=== PATIENT | female | born 1935 | race Hispanic/Latino ===

== ENCOUNTER 2016-12-02 17:38 | Observation (INO) | payer MEDICARE, BC ==
[2016-12-02 17:47] VITALS: BMI 26.9
--- NOTE | 2016-12-02 18:19 | ED PDOC ---
Arrival/HPI - General Chief Complaint: Palpitations Time Seen by Provider: 12/02/16 17:57 Historian: Patient - History of Present Illness Narrative History of Present Illness (Text): 12/02/16 18:16 81 year old female presents to the emergency department with intermittent epigastric pain radiating to the retrosternal area, sent by PMD Dr. Jenkins for concerns of unstable angina. Denies shortness of breath or dyspnea on exertion. Denies chest pain. Past Medical History - Provider Review Nursing Documentation Reviewed: Yes - Infectious Disease Hx of Infectious Diseases: None - Tetanus Immunization Tetanus Immunization: Unknown - Hematological/Oncological Hx Cancer: Yes (lymphoma) - Psychiatric Hx Depression: No Hx Emotional Abuse: No Hx Physical Abuse: No Hx Substance Use: No - Surgical History Other/Comment: Uterine Surgery - Anesthesia Hx Anesthesia: Yes - Suicidal Assessment Feels Threatened In Home Enviroment: No Family/Social History - Physician Review Nursing Documentation Reviewed: Yes Family/Social History: Unknown Family HX Smoking Status: Unknown If Ever Smoked Hx Alcohol Use: No Hx Substance Use: No Allergies/Home Meds Allergies/Adverse Reactions: Allergies No Known Allergies Allergy (Verified 12/02/16 17:46) Home Medications: Home Meds Medication Instructions Recorded Confirmed No Known Home Med 12/02/16 12/02/16 Review of Systems - Physician Review All systems were reviewed & negative as marked: Yes Physical Exam - Physical Exam Narrative Physical Exam (Text): - Review of Systems Constitutional: Normal. absent: Fatigue, Weight Change, Fevers Eyes: Normal ENT: Normal Respiratory: Normal absent: SOB, [place], Cough, Sputum Cardiovascular: Retrosternal pain absent: Palpitations, Syncope Gastrointestinal: Epigastric pain absent: Diarrhea, Nausea, Vomiting Genitourinary: Normal. absent: Dysuria, Frequency, Hematuria Musculoskeletal: Normal. absent: Arthralgias, Back Pain, Neck Pain Skin: Normal Neurological: Normal absent: Focal Weakness Endocrine: Normal Hemo/Lymphatic: Normal Psychiatric: Normal - Physical exam Patient appears age appropriate, speaking full sentences without difficulty - Systems Exam Head: Present: Atraumatic, Normocephalic Pupils: Present: PERRL Extraocular Muscles: Present: EOMI Conjunctiva: Present: Normal Mouth: Present: Moist Mucous Membranes Neck: Present: Normal Range of Motion. No: MIDLINE TENDERNESS, Paraspinal Tenderness Respiratory/Chest: Present: Clear to Auscultation, Good Air Exchange. No: Respiratory Distress, Accessory Muscle Use, Tachypneic Cardiovascular: Present: Regular Rate and Rhythm, Normal S1, S2, Peripheral Pulses Present. No: Murmurs Abdomen: Present: Normal Bowel Sounds, No: Tenderness, Peritoneal Signs, Rebound, Guarding, Distention Back: Present: Normal Inspection. No: Midline Tenderness, Paraspinal Tenderness Upper Extremity: Present: Normal Inspection. No: Cyanosis, Edema Lower Extremity: Present: Normal Inspection. No: Edema Neurological: Present: GCS=15, Speech Normal, cranial nerves II through XII fully intact with no cerebellar abnormality, neuro-sensory fully intact. No focal neurological deficits. Skin: Present: Warm, Dry, Normal Color. No: Rashes Lymphatic: Present: OX3, NI, NC Psychiatric: Present: Alert, Oriented x 3, Normal Insight, Normal Concentration Vital Signs Reviewed: Yes Vital Signs Temp Pulse Resp BP Pulse Ox 12/02/16 18:30 64 20 155/76 H 98 12/02/16 17:51 97.7 F 75 20 112/55 L 98 Temperature: Afebrile Blood Pressure: Normal Pulse: Regular Respiratory Rate: Normal Appearance: Positive for: Well-Appearing, Non-Toxic Mental Status: Positive for: Alert and Oriented X 3 Medical Decision Making ED Course and Treatment: Impression: 81 year old female presents to the emergency department with intermittent epigastric pain radiating to the retrosternal area, sent by PMD Dr. Jenkins for concerns of unstable angina. On physical exam, patient has no acute findings. Plan: -- Chest X-ray -- Aspirin -- Labs -- Reassess and disposition Progress Notes: EKG shows NSR at [address]-segment elevations, normal intervals. Interpreted by me. Patient agreeable to overnight observation on telemetry for cardiac evaluation. 12/02/16 20:40 Chest xray interpreted by ED physician shows no pneumothorax, no cardiomegaly, no infiltrates dw Dr. Roberts, accepted pt to tele under her service pt in no distress, resting comfortably in bed - Lab Interpretations Lab Results: 12/02/16 18:00 12/02/16 18:45 Lab Results 12/02/16 18:45: Sodium 140, Potassium 3.7, Chloride 110 H, Carbon Dioxide 20 L, Anion Gap 14, BUN 20, Creatinine 0.7, Est GFR ( Amer) > 60, Est GFR (Non- Af Amer) > 60, Random Glucose 81, Calcium 9.1, Total Bilirubin 0.7, AST 29, ALT 24, Alkaline Phosphatase 61, Lactate Dehydrogenase 504, Total Creatine Kinase 101, Troponin I < 0.01, Total Protein 7.3, Albumin 4.1, Globulin 3.2, Albumin/ Globulin Ratio 1.3 12/02/16 18:00: PT 10.7, INR 0.99, APTT 23.3 L 12/02/16 18:00: WBC 4.8, RBC 4.21, Hgb 13.0, Hct 38.1, MCV 90.5, MCH 30.9, MCHC 34.1, RDW 14.2, Plt Count 214, MPV 10.2, Gran % 55.9, Lymph % (Auto) 31.0, [place] % (Auto) 9.4 H, Eos % (Auto) 2.9, Baso % (Auto) 0.8, Gran # 2.67, Lymph # 1.5, [place] # 0.5, Eos # 0.1, Baso # 0.04 - RAD Interpretation Radiology Orders: 12/02/16 18:12 CHEST PORTABLE [RAD] Stat - Medication Orders Current Medication Orders: Aspirin (Ecotrin) 81 mg PO DAILY CATRACHITO Nitroglycerin (Nitrostat Sl Tab) 0.4 mg SL STAT PRN PRN Reason: CHEST PAIN Last Admin: 12/02/16 20:24 Dose: 0.4 mg Discontinued Medications Aspirin (Aspirin Chewable) 324 mg PO STAT STA Stop: 12/02/16 18:13 Last Admin: 12/02/16 18:45 Dose: 324 mg - Scribe Statement The provider has reviewed the documentation as recorded by the Héctor Vicente Provider Scribe Attestation: All medical record entries made by the Héctor were at my direction and personally dictated by me. I have reviewed the chart and agree that the record accurately reflects my personal performance of the history, physical exam, medical decision making, and the department course for this patient. I have also personally directed, reviewed, and agree with the discharge instructions and disposition. Disposition/Present on Arrival - Present on Arrival Any Indicators Present on Arrival: No History of DVT/PE: No History of Uncontrolled Diabetes: No Urinary Catheter: No History of Decub. Ulcer: No History Surgical Site Infection Following: None - Disposition Have Diagnosis and Disposition been Completed?: Yes Diagnosis: Chest pain Disposition: HOSPITALIZED Disposition Time: 20:42 Patient Plan: Observation Condition: FAIR Discharge Instructions (ExitCare): Chest Pain (ED) Referrals: La Nena Jenkins MD [Primary Care Provider] - Follow up with primary
[2016-12-02 18:24] LABS: ADD MANUAL DIFF? NO
[2016-12-02 18:38] LABS: BASO # 0.04 K/mm3 (0.0-2.0); BASO % 0.8 % (0.0-3.0); EOS # 0.1 (0.0-0.7); EOS % 2.9 % (1.5-5.0); GRAN # 2.67 (1.4-6.5); GRAN % 55.9 % (50.0-68.0); HEMATOCRIT 38.1 % (36.0-48.0); LYMPH # 1.5 (1.2-3.4); MEAN CELL VOLUME 90.5 fL (80.0-105.0); MEAN CORPUSCULAR HEMOGLOBIN 30.9 pg (25.0-35.0); MEAN CORPUSCULAR HGB CONC 34.1 g/dl (31.0-37.0); MEAN PLATELET VOLUME 10.2 fl (7.0-11.0); MONO # 0.5 (0.1-0.6); MONO % 9.4 % (1.0-6.0); PLATELET COUNT 214 10^3/uL (120.0-450.0); RED CELL DISTRIBUTION WIDTH 14.2 % (11.5-14.5); WHITE BLOOD COUNT 4.8 10^3/ul (4.5-11.0)
[2016-12-02 18:49] LABS: INR 0.99 (0.93-1.08); PARTIAL THROMBOPLASTIN TIME 23.3 Seconds (23.7-30.8)
[2016-12-02 18:56] LABS: ALB/GLOB RATIO 1.3 (1.1-1.8); ALKALINE PHOSPHATASE 61 U/L (38-133); ALT/SGPT 24 U/L (7-56); AST/SGOT 29 U/L (15-39); BILIRUBIN,TOTAL 0.7 mg/dL (0.2-1.3); BLOOD UREA NITROGEN 20 mg/dL (7-21); CALCIUM 9.1 mg/dL (8.4-10.5); CARBON DIOXIDE 20 mmol/L (21-33); CHLORIDE 110 mmol/L (98-107); GFR AFRICAN-AMERICAN > 60; GLUCOSE,RANDOM 81 mg/dL (70-110); POTASSIUM 3.7 mmol/L (3.6-5.0); SODIUM 140 mmol/L (132-148); TOTAL PROTEIN 7.3 g/dL (5.8-8.3)
[2016-12-02 19:08] LABS: TROPONIN I < 0.01 ng/mL
[2016-12-02] MEDS: Nitroglycerin 2% Ointment Foilpak UD TOP PRN (23:58)
[2016-12-03] MEDS: Nitroglycerin 2% Ointment Foilpak UD TOP PRN (06:08)
[2016-12-03 06:21] VITALS: O2SAT 97
[2016-12-03 09:12] LABS: CHOLESTEROL 193 mg/dL (130-200)
--- NOTE | 2016-12-03 09:17 | CON ---
DATE: 12/03/2016 INDICATIONS: Midepigastric abdominal chest discomfort and weakness. HISTORY OF PRESENT ILLNESS: This is an 81-year-old woman admitted through the Emergency Room after she complained of vague symptoms including mid epigastric and retrosternal discomfort and an "emptiness" in those areas and weakness. A week or so ago she exerted herself during gardening which included lifting flower pots while she was lying on her abdomen. She believes that she may have strained herself during this exertion. Her son applied massage to the aching muscles, but symptoms continued and she saw two physicians, The second, Dr. Saray Jenkins sent her to the Emergency Room and she was admitted. This morning she has no symptoms and feels well except that she is anxious about the diagnosis. There is no typical exertional chest pain described, shortness of breath, orthopnea, PND, syncope, presyncope, lightheadedness, dizziness, vertigo, palpitations, edema or claudication There is no fever, chills, cough, sputum production, hemoptysis, abdominal pain, nausea, vomiting, diarrhea, constipation , melena. PAST MEDICAL HISTORY: Noted for lymphoma which was apparently treated with chemotherapy successfully. She has had uterine surgery for "abnormal cells." There is no history of rheumatic fever, myocardial infarction, angina, congestive heart failure, arrhythmia, diabetes, stroke, TIA or gout. Her blood pressure has been elevated recently. MEDICATIONS: None. ALLERGIES: There are no medication allergies. SOCIAL HISTORY: She does not smoke. She does not drink. She lives at home. She is ambulatory and active. FAMILY HISTORY: Noncontributory. REVIEW OF SYSTEMS: A 10-point review of systems is otherwise unremarkable except as noted above. PHYSICAL EXAMINATION: GENERAL: She is a well-developed woman in no acute distress, sitting on her bed in telemetry. VITAL SIGNS: Unremarkable. She is in sinus rhythm at 60-85 beats per minute. She is afebrile, blood pressure 151/87, respirations 19-20, O2 sat 97%-98% on room air. HEENT: Reveals no neck vein distention, thyromegaly, or carotid bruits. Mucous membranes are moist. Conjunctivae are pink. NECK: Supple. LUNGS: Moore clear. HEART: Revealed normal first and second heart sounds without murmur, gallop, rub or click. ABDOMEN: Soft, bowel sounds present. No mass, organomegaly, tenderness, rebound, or guarding. No CVA tenderness. No palpable abdominal aortic aneurysm. EXTREMITIES: Revealed no cyanosis, clubbing, or edema. NEUROLOGIC: She is awake, alert and oriented. PSYCHIATRIC: Normal as to mood and affect. SKIN: Warm and dry. No rash or cellulitis. LABORATORY AND IMAGING: A portable chest x-ray was done and is not yet interpreted. It is unremarkable to me, no evidence of congestive heart failure , infiltrate or effusion. EKG demonstrates regular sinus rhythm, nonspecific ST wave changes and no change from a prior EKG. CBC is unremarkable. PT, INR, PTT unremarkable. Electrolytes, BUN, creatinine, blood sugar, LFTs, CK all unremarkable. Two troponins are negative. IMPRESSION: The patient is an 81-year-old woman who has had symptoms for several weeks since doing some heavy exertion in the garden. Her EKG is unchanged. Two troponins are negative. Her symptoms are a bit vague, but she is very concerned. She has a history of lymphoma treated with chemotherapy and uterine surgery for "abnormal cells." At this time, I would obtain an echocardiogram. I spoke to her about an outpatient nuclear stress test and she seems interested. This can be arranged in the very near future. She is getting aspirin and nitro paste. A lipid panel is ordered. I will repeat her EKG this morning. We will get an echocardiogram. She can be out of bed. If symptoms are not recurrent, she can be discharged soon with plans for outpatient nuclear stress testing. If symptoms are recurrent on an outpatient basis, she will contact with her physician or me directly and promptly. Ryan Castaneda MD cc: [phone] TT: 12/03/2016 09:16:31 Confirmation # [id number] Dictation # [id number] araceli DUBOSE
[2016-12-03 09:27] LABS: TROPONIN I < 0.01 ng/mL
--- NOTE | 2016-12-03 10:03 | RAD ---
HISTORY: cough COMPARISON: 12/20/2013 FINDINGS: LUNGS: No active pulmonary disease. PLEURA: No significant pleural effusion identified, no pneumothorax apparent. CARDIOVASCULAR: Normal. OSSEOUS STRUCTURES: No significant abnormalities. VISUALIZED UPPER ABDOMEN: Normal. OTHER FINDINGS: None. IMPRESSION: No active disease.
[2016-12-03 11:50] VITALS: RESP 18
--- NOTE | 2016-12-03 16:08 | CARD ---
APPROVED REPORT EXAM: Two-dimensional and M-mode echocardiogram with Doppler and color Doppler. INDICATION Chest Pain BOYD DISCOMFORT 2D DIMENSIONS Left Atrium (2D)4.1 (1.6-4.0cm)IVSd1.0 (0.7-1.1cm) LVDd4.4 (3.9-5.9cm)PWd1.0 (0.7-1.1cm) LVDs2.8 (2.5-4.0cm)FS (%) 35.6 % LVEF (%)65.3 (>50%) M-Mode DIMENSIONS Aortic Root3.00 (2.2-3.7cm)Aortic Cusp Exc.1.40 (1.5-2.0cm) Aortic Valve AoV Peak Eofemfvn056.0cm/Karley Peak GR.12mmHg Mitral Valve MV E Cnmfbbqi10.5cm/sMV A Ztxfptai827.0cm/sE/A ratio0.7 TDI Lateral E' Peak V9.16cm/sMedial E' Peak V7.31cm/sE/Lateral E'8.6 E/Medial E'10.7 Pulmonary Valve PV Peak Dlcbtthw57.6cm/sPV Peak Grad.2mmHg Tricuspid Valve TR Peak Tloadnog977zf/sRAP CSMAGKRU25vnDhMC Peak Gr.32mmHg [id number] LEFT VENTRICLE The left ventricle is normal size. There is normal left ventricular wall thickness. The left ventricular function is normal. The left ventricular ejection fraction is within the normal range. There is normal LV segmental wall motion. RIGHT VENTRICLE The right ventricle is normal size. The right ventricular systolic function is normal. ATRIA The left atrium is mildly dilated. The right atrium size is normal. The interatrial septum is intact with no evidence for an atrial septal defect. AORTIC VALVE The aortic valve is normal in structure. No aortic regurgitation is present. There is no aortic valvular stenosis. MITRAL VALVE The mitral valve is normal in structure. Mitral regurgitation is mild to moderate. TRICUSPID VALVE The tricuspid valve is normal in structure. There is mild tricuspid regurgitation. PULMONIC VALVE The pulmonary valve is normal in structure. GREAT VESSELS The aortic root is normal in size. The IVC is normal in size and collapses >50% with inspiration. PERICARDIAL EFFUSION There is no pleural effusion. There is no pericardial effusion. <Conclusion> Dilated LA. Normal LV size and systolic function. Mild to moderate MR Mild TR.
[2016-12-03 17:46] VITALS: BP 136/60; TEMP 97.9
[2016-12-03 18:14] VITALS: PULSE 71
[2016-12-04] MEDS ORDERED: Pantoprazole 40 mg EC Tab PO SCH (06:00)
--- NOTE | 2016-12-04 07:15 | HP ---
HISTORY OF PRESENT ILLNESS: This 81-year-old female was examined at her bedside on the cardiac unit in the presence of her son, Ari. She is 81 years old, presented to the [facility] ER upon the advice of her private physician, Dr. Saray Jenkins, after complaining of chest discomfort which occurred after exerting herself while gardening and lifting heavy flower pots approximately 1 week ago. The patient stated she felt a substernal and midepigastric discomfort and was advised by her physician to be admitted for further evaluation of the above. The patient denies any prior history of atherosclerotic heart disease, unstable angina, abnormal stress testing or abnormal echocardiograms to her knowledge and states she does have hypertension , but is noncompliant with the medication. She was finally able to name that it was metoprolol 25 mg p.o. daily that she was advised to take, but has been noncompliant with this recommendation. Her son concurred with this statement. PAST MEDICAL HISTORY: She has a history of successfully treated lymphoma, a history of uterine surgery for what she defined as precancerous cells. She denied any knowledge of any abdominal surgery, including appendectomy, cholecystectomy, or hernia repair and states she is on no active medication at present. ALLERGIES: She denied any allergies to medication. SOCIAL HISTORY: She states she is a nondrinker, nonsmoker, non-IV drug misuser. FAMILY HISTORY: Noncontributory. She is a retired homemaker. REVIEW OF SYSTEMS: HEAD: No headache or seizure. EYES: No change in visual acuity. EARS: No hearing loss. THROAT: No swallowing difficulty. NECK: No stiffness. CARDIAC: Chronic hypertension, history as per HPI. LUNGS: No cough, no hemoptysis. GASTROINTESTINAL: No knowledge of hematemesis or melena. GENITOURINARY: No dysuria. SKIN: Without rash. NEUROLOGICAL: No knowledge of stroke. VASCULAR: No complaints of claudication. PSYCHOLOGICAL: She appears anxious. PHYSICAL EXAMINATION: VITAL SIGNS: She was in a normal sinus rhythm on the athletic monitor. Temperature 97.8, respirations 19, pulse 60, blood pressure 166/64 with a pulse ox of 97% room air. HEENT: Head was normocephalic, atraumatic. Eyes: No icterus. Ears clear. Throat not injected. NECK: Supple. HEART: Regular S1, S2. No pathological rubs, murmurs, or gallops. PULMONARY: Clear to auscultation. ABDOMEN: Soft. EXTREMITIES: No clubbing, no cyanosis, no edema. SKIN: Without rash. NEUROLOGICAL: Intact. PSYCHOLOGICAL: Alert and oriented x 3. VASCULAR: Leg warm to touch. LABORATORY DATA: White count 4800, hemoglobin 13, hematocrit 38.1, platelets 214,000. PT/INR 0.99. Sodium 140, K 3.7, chloride 110, bicarb 20, BUN 20, creatinine 0.7, random blood sugar 81. All liver function testing was normal including bilirubin 0.7, AST 29, ALT 24, alk phos 61. Troponin was less than 0.01 x 3. CPK was normal at 101 and 104, respectively. Cholesterol 193, LDL 110, HDL 57, triglycerides 67. Chest x-ray shows no active disease. Her EKG as reviewed by Dr. Ryan Castaneda from cardiology demonstrated normal sinus rhythm with nonspecific ST-T wave changes with no changes from prior EKG. IMPRESSION: An 81-year-old female with chest discomfort after doing heavy exertion during gardening in the setting of stable EKG, negative troponins and history of lymphoma and uterine surgery. As discussed with Dr. Castaneda, the plan is to proceed with echocardiography and he has discussed outpatient stress testing with her which he states he will arrange in her future. He agreed with continuing Ecotrin, nitro paste for accelerated hypertension and the patient is also ordered to receive Zestril 5 mg p.o. daily and I have resumed her metoprolol 25 mg p.o. daily. I have also ordered nitro sublingual p.r.n. any chest discomfort. Pending on reevaluating the patient post echocardiography, she will be readied for discharge if cleared by cardiology for outpatient followup with her private physician, Dr. Jenkins, and reception clerk of her choice. All of this was discussed in detail with the patient and her son, Ari, at the bedside. This was re-reviewed with her nurse, correctional casework specialist and Dr. Castaneda himself and approximately 60 minutes was spent in the care, coordination of care , and review of care for this patient today. Petrona Roberts MD cc: [phone] TT: 12/04/2016 07:14:39 tn MTDD
--- NOTE | 2016-12-04 16:11 | CARD ---
APPROVED REPORT EKG Measurement Heart [id number] <Conclusion> Normal sinus rhythm Possible Anterior infarct, age undetermined Abnormal ECG
--- NOTE | 2016-12-04 16:19 | CARD ---
APPROVED REPORT EKG Measurement Heart [id number] IN [id number] <Conclusion> Sinus rhythm with short IN Possible Left atrial enlargement Incomplete right bundle branch block Septal infarct, age undetermined Abnormal ECG
--- NOTE | 2016-12-05 02:24 | DS ---
DISPOSITION: Home. FINAL DIAGNOSES: Chest pain resolved, chronic hypertension, followup with her primary care physician, within 72 hours. The patient will need outpatient stress test as soon as possible to be scheduled under the direction of her primary care physician. Also with chronic hypertension, history of noncompliance with medication in the past. The patient was advised to take metoprolol tartrate 25 mg p.o. daily and to have medication adjusted by primary care physician based on response. SUMMARY: This 81-year-old female was admitted to [facility] under the direction of her physical Dr. Jenkins because of chest pain concerns and to rule out myocardial infarction versus unstable angina versus atypical chest pain. On laboratory review, she was noted to have 3 sets of negative cardiac isoenzymes, normal CPK levels and a cholesterol level of 193 in the setting of systolic hypertension. The patient was administered metoprolol tartrate 25 mg p.o. daily. She was seen in consultation by Dr. Ryan Castaneda from cardiology. He discussed with the patient scheduling an outpatient stress testing with which she and her son, Ari, concurred. She had a 2D echocardiogram completed that was reviewed by Dr. Vasiliy Damico from cardiology. It showed normal LV size and function, dilated left atrium, mild to moderate mitral regurgitation and mild tricuspid regurgitation. The patient was cleared for discharge to home by cardiology. At the time of discharge, her vital signs are temperature 97.9, respirations 18, pulse 71, and blood pressure 136/60. Labs showed sodium 140, K 3.7, chloride 110, bicarbonate 20, BUN 20, creatinine 0.7, and random blood sugar of 81. White count 4800, hemoglobin 13, hematocrit 38.1 , and platelets 214,000. She will need to follow up with her PMD to schedule an outpatient stress test, have her blood pressure monitored, and have discussion regarding lipid lowering agents. Hopefully, she will be compliant with all of the above and has been advised for any change in signs and symptoms to present directly to [facility] ER. Petrona Roberts MD cc: [id number] TT: 12/05/2016 02:23:37 akiko DUBOSE
== END 2016-12-03 20:15 | disposition home or self-care (01) ==
LOC: ED 17:38 → ERH 20:42 → 2RNO 23:09
PROVIDERS: ADMIT Internal Medicine; ATTEND Internal Medicine
DX: R07.89 Other chest pain (principal); R10.13 Epigastric pain; I10 Essential (primary) hypertension; I08.1 Rheumatic disorders of both mitral and tricuspid valves; Z91.14 Patient's other noncompliance with medication regimen; Z85.72 Personal history of non-Hodgkin lymphomas; Z92.21 Personal history of antineoplastic chemotherapy
CPT/HCPCS: 36415; 71010; 80053; 80061; 82550; 83615; 84484; 85025; 85610; 85730; 93005; 93306; 99285; G0378

== ENCOUNTER 2018-06-29 11:22 | Outpatient (CLI) | payer MEDICARE, BC | END 2018-06-29 11:23 | disposition home or self-care (01) | LOC: RAD 11:22 ==